=== PATIENT | male | born 1990 | race African-American/Black ===

== ENCOUNTER 2021-01-22 23:19 | Emergency (ER) | payer MEDICAID, OTHER ==
[~2021-01-22] VITALS: Ht 170.2 cm; Wt 54.4 kg
[2021-01-22] MEDS: HYDROCODONE/APAP 5/325MG TABLET PO ONE (23:53)
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
[2021-01-22] MEDS ORDERED: HYDROCODONE/APAP 5/325MG TABLET ONE (23:55)
[2021-01-23] MEDS: HYDROCODONE/APAP 5/325MG TABLET PO ONE
[2021-01-23] MEDS ORDERED: LIDOCAINE 1%-EPI 1:100,000 20 ML VIAL ONE (00:19)
[2021-01-23 00:40] LABS: BASOPHILS % (AUTO) 0.2 % (0.0-2.0); EOSINOPHILS % (AUTO) 2.2 % (0.0-6.0); HEMATOCRIT 39 % (39-51); HEMOGLOBIN 12.7 g/dL (13.5-17.5); LYMPHOCYTES # (AUTO) 1.8 K/uL (0.8-4.8); MEAN CORPUSCULAR HGB CONC 32 g/dl (31.0-36.0); MEAN CORPUSCULAR VOLUME 87 fL (80-96); MONOCYTES # (AUTO) 0.8 K/uL (0.1-1.30); MONOCYTES % (AUTO) 8.4 % (2.0-12.0); NEUTROPHILS # (AUTO) 6.8 K/uL (1.8-8.9); NEUTROPHILS % (AUTO) 70.2 % (43.0-81.0); PLATELET COUNT (AUTO) 313 K/uL (150-450); RED BLOOD CELL COUNT(AUTO) 4.52 MIL/uL (4.5-6.0); WHITE BLOOD COUNT (AUTO) 9.6 K/uL (4.3-11.0)
--- NOTE | 2021-01-23 01:00 | NUR ---
PATIENT REPORTS IMPROVEMENT OF PAIN FOLLOWING MEDICATION ADMINISTRATION 09/23. RESTING COMOFRTABLY V/S WITHIN NORMAL LIMITS. WILL CONTINUE TO MONITOR
[2021-01-23 01:05] LABS: CALCIUM, SERUM 8.6 mg/dL (8.5-10.1); CREATININE 1.1 mg/dL (0.6-1.3); POTASSIUM 4.1 mmol/L (3.5-5.1)
--- NOTE | 2021-01-23 01:20 | NUR ---
[facility] WILL TRANSPORT [facility]. ETA 90 MINS PER JOHANNA DISPATCHER.
--- NOTE | 2021-01-23 01:21 | NUR ---
[facility] BEING TRANSFERRED TO [facility]
--- NOTE | 2021-01-23 01:35 | NUR ---
REPORT GIVEN TO THANH AT [facility] FOR TRANSFER
--- NOTE | 2021-01-23 01:40 | NUR ---
DR FERRER AT BEDSIDE FOR SUTURES
--- NOTE | 2021-01-23 03:08 | NUR ---
called [facility] for eta, 20 min
--- NOTE | 2021-01-23 03:35 | NUR ---
gave report to ems
[2021-01-23 03:50] VITALS: BP 132/82
--- NOTE | 2021-01-23 03:55 | NUR ---
PT PICKED UP BY [facility] FOR TRANSFER TO [place]. PT STABLE AND V/S WITHIN NORMAL LIMITS
== END 2021-01-23 04:00 | disposition short-term general hospital (02) ==
LOC: ER 23:23
DX: S02.2XXA Fracture of nasal bones, initial encounter for closed fracture (principal); S12.600A Unspecified displaced fracture of seventh cervical vertebra, initial encounter for closed fracture; S62.616A Displaced fracture of proximal phalanx of right little finger, initial encounter for closed fracture; Y08.02XA Assault by strike by baseball bat, initial encounter; Y93.9 Activity, unspecified; Y92.89 Other specified places as the place of occurrence of the external cause; Z20.822 Contact with and (suspected) exposure to COVID-19; S01.81XA Laceration without foreign body of other part of head, initial encounter
CPT/HCPCS: 12011; 29125; 36415; 70450; 70486; 72125; 73030; 73080; 73090; 73130; 80048; 85025; 87426; 99291; A6403; C9803; J3490; L0172